=== PATIENT | female | born 1980 | race Hispanic/Latino ===

== ENCOUNTER 2018-11-22 14:31 | Emergency (ER) | payer SELFPAY ==
[~2018-11-22] VITALS: Ht 167.6 cm; Wt 88.5 kg
[~2018-11-22 14:31] MED LIST: PROPRANOLOL HCL10 MG PO
[2018-11-22 16:40] VITALS: BP 121/58
--- NOTE | 2018-11-22 16:54 | Diagnostic Imaging Report ---
EXAMINATION: CHEST 2 VIEWS INDICATION: Cough COMPARISON: None FINDINGS: PA and lateral views TUBES and LINES: None. LUNGS: Lungs are well inflated. Lungs are clear. There is no evidence of pneumonia or pulmonary edema. PLEURA: No pleural effusion or pneumothorax. HEART AND MEDIASTINUM: The cardiomediastinal silhouette is unremarkable. BONES AND SOFT TISSUES: No acute osseous lesion. Soft tissues are unremarkable. UPPER ABDOMEN: No free air under the diaphragm. IMPRESSION: No acute thoracic abnormality. Signed by: Dr. Niels Gudino M.D. on 11/22/2018 4:51 PM
== END 2018-11-22 16:50 | disposition home or self-care (01) ==
LOC: ER 14:31
DX: R05 Cough (principal); Z77.22 Contact with and (suspected) exposure to environmental tobacco smoke (acute) (chronic)
CPT/HCPCS: 71046; 99283

== ENCOUNTER 2021-10-28 19:42 | Emergency (ER) | payer BC, OTHER ==
[~2021-10-28] VITALS: Ht 182.9 cm; Wt 88.5 kg
[2021-10-28] MEDS ORDERED: ONDANSETRON HCL INJ 2MG/ML 2ML 2 MG/ML VIAL IV STA (20:40)
[2021-10-28] MEDS ORDERED: SODIUM CHLORIDE 0.9% 1000ML 1,000 ML IV ONE (20:45)
[2021-10-28] MEDS ORDERED: FAMOTIDINE 20 MG/2 ML VIAL IV STA (20:47)
[2021-10-28] MEDS ORDERED: ONDANSETRON HCL INJ 2MG/ML 2ML 2 MG/ML VIAL ONE (21:07)
[2021-10-28] MEDS ORDERED: SODIUM CHLORIDE 0.9% 1000ML 1,000 ML ONE (21:07)
[2021-10-28] MEDS ORDERED: FAMOTIDINE 20 MG/2 ML VIAL IV ONE (21:07)
[2021-10-28] MEDS ORDERED: SODIUM CHLORIDE 0.9% 50ML 50 ML ONE (21:19)
[2021-10-28] MEDS ORDERED: IOPAMIDOL 370 MG/ML 200 ML INFUS..BTL INJ ONE (21:20)
[2021-10-28] MEDS ORDERED: ONDANSETRON ODT4 MG PO (22:43)
[2021-10-28] MEDS ORDERED: FAMOTIDINE20 MG PO (22:44)
== END 2021-10-28 23:07 | disposition home or self-care (01) ==
LOC: FSED 20:14
DX: R11.2 Nausea with vomiting, unspecified (principal); K52.9 Noninfective gastroenteritis and colitis, unspecified; R10.32 Left lower quadrant pain; Z98.84 Bariatric surgery status
CPT/HCPCS: 74177; 80048; 80076; 81003; 81025; 85025; 99284; J2405; J7030; Q9967

== ENCOUNTER 2022-02-25 15:45 | Emergency (ER) | payer OTHER ==
[~2022-02-25] VITALS: Ht 198.1 cm; Wt 88.5 kg
[~2022-02-25 15:45] MED LIST changes: +FAMOTIDINE20 MG PO; +ONDANSETRON ODT4 MG PO
[2022-02-25 18:35] VITALS: BP 112/82
== END 2022-02-25 18:35 | disposition home or self-care (01) ==
LOC: ER 16:32
DX: T23.211A Burn of second degree of right thumb (nail), initial encounter (principal); T22.112A Burn of first degree of left forearm, initial encounter; R07.89 Other chest pain; X08.8XXA Exposure to other specified smoke, fire and flames, initial encounter; Y92.098 Other place in other non-institutional residence as the place of occurrence of the external cause; Z98.84 Bariatric surgery status
CPT/HCPCS: 71046; 99283

== ENCOUNTER 2022-05-12 17:14 | Emergency (ER) | payer OTHER ==
[~2022-05-12] VITALS: Ht 188 cm; Wt 86.2 kg
[2022-05-12] MEDS ORDERED: HYDROCODONE/APAP 5MG-325MG TAB PO ONE (17:45)
[2022-05-12] MEDS ORDERED: IBUPROFEN600 MG PO (19:45)
== END 2022-05-12 19:56 | disposition home or self-care (01) ==
LOC: ER 17:24
DX: S91.201A Unspecified open wound of right great toe with damage to nail, initial encounter (principal); W21.05XA Struck by basketball, initial encounter; Y92.89 Other specified places as the place of occurrence of the external cause; Z98.84 Bariatric surgery status
CPT/HCPCS: 99283